=== PATIENT | male | born 1945 | race Caucasian/White ===

== ENCOUNTER 2018-12-16 14:58 | Observation (INO) | payer MEDICARE, BC ==
[~2018-12-16] VITALS: Ht 180.3 cm; Wt 68.4 kg
[2018-12-16 15:59] LABS: BASO # 0.1 (0.0-0.2); BASO % 0.8 % (0.0-2.0); EOS # 0.2 (0.0-0.7); EOS % 2.4 % (0-4.0); GRAN # 5.1 (1.4-6.5); GRAN % 64.3 % (42.2-75.2); HEMOGLOBIN 12.2 g/dl (13.5-18.0); LYMPH # 1.6 (1.2-3.4); LYMPH % 20.3 % (20.0-51.0); MEAN CELL VOLUME 94 fl (80.0-100.0); MEAN CORPUSCULAR HEMOGLOBIN 32 pg (27.0-31.0); MEAN CORPUSCULAR HGB CONC 34 g/dl (33.0-37.0); MEAN PLATELET VOLUME 10.4 fl (7.4-10.4); MONO # 0.9 (0.1-0.6); MONO % 11.9 % (1.7-9.3); PLATELET COUNT 304 K/mm3 (130-400); RED BLOOD COUNT 3.83 M/mm3 (4.20-5.60); REDCELL DISTRIBUTION WIDTH-CV 13.7 % (11.5-14.5)
[2018-12-16 16:12] LABS: ALBUMIN 4.2 gm/dL (3.5-5.0); BILIRUBIN,TOTAL 0.6 mg/dL (0.0-1.0); CALCIUM 9.8 mg/dL (8.4-10.2); CREATININE, serum 1.51 (0.66-1.25); POTASSIUM 4.4 mmol/L (3.4-5.0); TOTAL PROTEIN 7.2 gm/dL (6.4-8.2)
[2018-12-16] MEDS ORDERED: CLARITIN 1010 MG/TAB PO (17:52)
[2018-12-16] MEDS ORDERED: ALEVE 220MG220 MG PO (17:53)
[2018-12-16 18:10] LABS: TROPONIN-I < 0.012 ng/mL (0.000-0.035)
[2018-12-16 18:13] LABS: PROLACTIN 6.8 ng/mL (3.7-17.9)
[2018-12-16 18:56] LABS: COLLECTION METHOD CLEAN CATCH
[2018-12-16 19:04] LABS: HYALINE CAST >12 /lpf; MUCOUS Present /lpf; PH 5 (5-8); SQUAMOUS EPITHELIAL 0-2 /hpf; URINE APPEARANCE Hazy; URINE BACTERIA None Seen /hpf; URINE BILIRUBIN Negative (NEGATIVE); URINE BLOOD Negative (NEGATIVE); URINE COLOR Yellow; URINE GLUCOSE Negative (NEGATIVE); URINE KETONE Negative (NEGATIVE); URINE LEUKOCYTE ESTERASE 2+ (NEGATIVE); URINE NITRATE Negative (NEGATIVE); URINE PROTEIN(semi-quant) Negative (NEGATIVE)
[2018-12-16 20:30] VITALS: PULSE 77
[2018-12-16 20:40] VITALS: BP 138/68; PULSE 70; TEMP 98.3
--- NOTE | 2018-12-16 21:00 | NUR ---
Admitted to medical floor observation status- DX syncope, VSS, alert,oriented, denies SOB, dizziness, vertigo- Up to bathroom with assist-voiding without problems- understands to call for assist to bathroom, INT to R/AC. Tele on. States has some left sided pain 06/19- states "its not too bad now"
[2018-12-16] MEDS ORDERED: BENADRYL25 M2 PO (21:38)
[2018-12-16 22:07] VITALS: PULSE 72
[2018-12-17 00:14] VITALS: BP 121/52; PULSE 69; TEMP 98
[2018-12-17 03:15] VITALS: BP 146/67; PULSE 65
--- NOTE | 2018-12-17 05:27 | NUR ---
Quiet night- VSS, did sleep for a few hours between interruptions-Tele on.
[2018-12-17 07:04] LABS: HEMATOCRIT 38.1 % (42.0-52.0); HEMOGLOBIN 12.7 g/dl (13.5-18.0); MEAN CELL VOLUME 95 fl (80.0-100.0); MEAN CORPUSCULAR HEMOGLOBIN 32 pg (27.0-31.0); MEAN CORPUSCULAR HGB CONC 33 g/dl (33.0-37.0); MEAN PLATELET VOLUME 10.7 fl (7.4-10.4); PLATELET COUNT 320 K/mm3 (130-400); REDCELL DISTRIBUTION WIDTH-CV 13.9 % (11.5-14.5)
[2018-12-17 07:15] VITALS: BP 141/59; PULSE 69; TEMP 97.7
[2018-12-17 07:23] LABS: ANION GAP 6 mmol/L (7-16); BLOOD UREA NITROGEN 13 mg/dL (9-20); CALCIUM 9.2 mg/dL (8.4-10.2); CARBON DIOXIDE 23 mmol/L (22-30); CHLORIDE 107 mmol/L (98-107); CHOLESTEROL 195 mg/dL (120-200); CHOLESTEROL RISK RATIO 3.6; CREATININE, serum 1.18 (0.66-1.25); GLUCOSE 78 mg/dL (74-106); HDL CHOLESTEROL 53 mg/dL; LDL CHOLESTEROL 127 mg/dL; POTASSIUM 4.2 mmol/L (3.4-5.0); SODIUM 137 mmol/L (137-145); TRIGLYCERIDE 77 mg/dL
[2018-12-17 07:47] LABS: TROPONIN-I < 0.012 ng/mL (0.000-0.035)
--- NOTE | 2018-12-17 09:14 | NUR ---
Initial visit; Patient thanked Book Editor for looking in on him and offering God's blessings.
--- NOTE | 2018-12-17 10:17 | NUR ---
MOLLY's met with the patient and the patient's , Jessica (ph#[phone]), to discuss discharge plan. The patient lives in [place] with his . He states that his grandson lives with them part of the time. He reports independence with ADLs and has a cane, walker, and wheelchair available if needed. The patient does not have a primary care provider and he was not interested in being set up with one at this time. MOLLY did provide the patient with a list of the different PCP's in the [place] area to look over. He receives his medications at the [facility] in [place] and he reports no difficulties obtaining his meds. The patient does not have advanced directives completed and he was not interested in completing them at this time. The patient plans to return back home with his upon discharge. SW to continue to follow.
[2018-12-17 11:05] VITALS: BP 132/62; PULSE 72; TEMP 98
--- NOTE | 2018-12-17 12:15 | NUR ---
PT TAKEN DOWN VIA WHEELCHAIR FOR MRI
--- NOTE | 2018-12-17 13:04 | NUR ---
PT RETURNED FROM MRI. SPA HOST PRESENT TO PERFORM ECHOCARDIOGRAM.
[2018-12-17] MEDS ORDERED: OMNICEF 300MG300 MG PO (15:38)
[2018-12-17] MEDS ORDERED: ASPIRIN 81M81 MG/TA2 PO (15:39)
[2018-12-17] MEDS ORDERED: TYLENOL 500MG500 MG PO (15:51)
--- NOTE | 2018-12-17 16:07 | NUR ---
DISCHARGE INSTRUCTIONS REVIEWED WITH PATIENT AND . PT'S IV DISCONTINUED. PT'S BELONGINS DISCHARGED WITH PATIENT. PT WHEELED TO ENTRANCE BY KATIA MEDINA.
[2018-12-19 11:48] LABS: RPR (VDRL) XXX
== END 2018-12-17 16:05 | disposition home or self-care (01) ==
LOC: COL.ER 14:58 → MEDICAL 18:30
PROVIDERS: Emergency Medicine; ADMIT Student in an Organized Health Care Education/Training Program
DX: R55 Syncope and collapse (principal); N17.9 Acute kidney failure, unspecified; N39.0 Urinary tract infection, site not specified; E78.5 Hyperlipidemia, unspecified; J30.89 Other allergic rhinitis; I07.1 Rheumatic tricuspid insufficiency; Z87.891 Personal history of nicotine dependence; Z91.010 Allergy to peanuts; Z91.018 Allergy to other foods
CPT/HCPCS: A4216; A9585; G0378; J0696; J1650; J7030

== ENCOUNTER 2018-12-26 15:50 | Emergency (ER) | payer MEDICARE, BC ==
[~2018-12-26] VITALS: Ht 180.3 cm; Wt 63.6 kg
[~2018-12-26 15:50] MED LIST: ALEVE 220MG220 MG PO; ASPIRIN 81M81 MG/TA2 PO; BENADRYL25 M2 PO; CLARITIN 1010 MG/TAB PO; OMNICEF 300MG300 MG PO; TYLENOL 500MG500 MG PO
[2018-12-26 15:55] VITALS: TEMP 98
[2018-12-26 16:39] LABS: BASO # 0.1 (0.0-0.2); BASO % 0.5 % (0.0-2.0); EOS % 0.1 % (0-4.0); GRAN % 83.3 % (42.2-75.2); HEMATOCRIT 37.5 % (42.0-52.0); HEMOGLOBIN 12.6 g/dl (13.5-18.0); LYMPH # 0.9 (1.2-3.4); LYMPH % 8.7 % (20.0-51.0); MEAN CELL VOLUME 94 fl (80.0-100.0); MEAN CORPUSCULAR HEMOGLOBIN 32 pg (27.0-31.0); MEAN CORPUSCULAR HGB CONC 34 g/dl (33.0-37.0); MEAN PLATELET VOLUME 9.9 fl (7.4-10.4); MONO # 0.7 (0.1-0.6); MONO % 6.8 % (1.7-9.3); PLATELET COUNT 306 K/mm3 (130-400); RED BLOOD COUNT 3.98 M/mm3 (4.20-5.60); REDCELL DISTRIBUTION WIDTH-CV 14.1 % (11.5-14.5)
[2018-12-26 17:20] LABS: ALANINE AMINOTRANSFERASE 23 U/L (21-72); ALBUMIN 4.4 gm/dL (3.5-5.0); ALKALINE PHOSPHATASE 73 U/L (50-136); ANION GAP 14 mmol/L (7-16); AST,SGOT 56 U/L (15-37); BILIRUBIN,TOTAL 0.6 mg/dL (0.0-1.0); BLOOD UREA NITROGEN 17 mg/dL (9-20); C-REACTIVE PROTEIN 0.9 mg/dL (0.0-0.9); CALCIUM 9.3 mg/dL (8.4-10.2); CARBON DIOXIDE 20 mmol/L (22-30); CHLORIDE 96 mmol/L (98-107); CREATININE, serum 1.17 (0.66-1.25); GLUCOSE 76 mg/dL (74-106); LIPASE 243 U/L (23-300); MAGNESIUM 1.9 mg/dL (1.6-2.3); PHOSPHOROUS 3.4 mg/dL (2.5-4.5); POTASSIUM 4.7 mmol/L (3.4-5.0); SODIUM 131 mmol/L (137-145); TOTAL PROTEIN 7.7 gm/dL (6.4-8.2)
[2018-12-26 17:35] LABS: ALCOHOL(ethanol),MEDICAL < 10 mg/dL
[2018-12-26 18:10] LABS: COLLECTION METHOD CLEAN CATCH
[2018-12-26 18:29] LABS: PH 5 (5-8); SQUAMOUS EPITHELIAL None Seen /hpf; URINE APPEARANCE Clear; URINE BACTERIA None Seen /hpf; URINE BILIRUBIN Negative (NEGATIVE); URINE BLOOD Negative (NEGATIVE); URINE COLOR Yellow; URINE GLUCOSE Negative (NEGATIVE); URINE KETONE 1+ (NEGATIVE); URINE LEUKOCYTE ESTERASE Negative (NEGATIVE); URINE NITRATE Negative (NEGATIVE); URINE PROTEIN(semi-quant) Negative (NEGATIVE); URINE RBC 0-2 /hpf; URINE UROBILINOGEN Negative (NEGATIVE)
[2018-12-26] MEDS ORDERED: TRIAMCINOLONE A15 G1 TP (18:45)
[2018-12-26 18:59] VITALS: BP 135/100; PULSE 93
== END 2018-12-26 18:59 | disposition home or self-care (01) ==
LOC: COL.ER 15:50
PROVIDERS: Emergency Medicine
DX: F10.10 Alcohol abuse, uncomplicated (principal); R21 Rash and other nonspecific skin eruption; R53.81 Other malaise; F17.210 Nicotine dependence, cigarettes, uncomplicated; Z79.82 Long term (current) use of aspirin
CPT/HCPCS: J7030

== ENCOUNTER → 2019-06-30 | Outpatient (CLI) | payer MEDICARE, BC ==
[~2019-06-30] MED LIST changes: +TRIAMCINOLONE A15 G1 TP
== END ==
LOC: COL.VAS 10:21
DX: I65.23 Occlusion and stenosis of bilateral carotid arteries (principal)

== ENCOUNTER 2023-05-01 18:35 | Inpatient (IN) | payer MEDICARE, BC ==
[2023-05-01] VITALS (77 sets, daily range): BP systolic 73–87; BP diastolic 53–57; PULSE 117; TEMP 99.5; O2SAT 88–98
[~2023-05-01] VITALS: Ht 180.3 cm; Wt 87.5 kg
[2023-05-01] MEDS ORDERED: Melatonin 3 MG TAB PO PRN (22:15)
[2023-05-01] MEDS ORDERED: Albuterol/Ipratropium 3 MG-0.5 MG/3 ML Neb Soln IH PRN (22:15)
[2023-05-01] MEDS ORDERED: Amiodarone 450 MG in D5W Excel 250 ML IV SCH (22:15)
[2023-05-01] MEDS ORDERED: Acetaminophen 325 MG TAB PO PRN (22:15)
[2023-05-01] MEDS ORDERED: Ondansetron 4 MG/2 ML VIAL IV PRN (22:15)
[2023-05-01] MEDS ORDERED: Albuterol/Ipratropium 3 MG-0.5 MG/3 ML Neb Soln IH SCH (23:00)
[2023-05-01 23:05] LABS: HEMOGLOBIN 11.3 g/dl (13.5-18.0); MEAN CELL VOLUME 91 fl (80.0-100.0); MEAN CORPUSCULAR HEMOGLOBIN 30 pg (27-31); MEAN CORPUSCULAR HGB CONC 33 g/dl (33.0-37.0); MEAN PLATELET VOLUME 10.1 fl (7.4-10.4); PLATELET COUNT 316 K/mm3 (130-400); RED BLOOD COUNT 3.75 M/mm3 (4.20-5.60); REDCELL DISTRIBUTION WIDTH-CV 14.5 % (11.5-14.5)
[2023-05-01 23:07] LABS: HEMATOCRIT 34.1 % (42.0-52.0)
[2023-05-01 23:21] LABS: BAND 6 % (0-10); HYPOCHROMIA 1+; LYMPHOCYTE 1 % (20.0-51.0); NEUTROPHILS 91 % (42.0-75.2); PLATELET ESTIMATE NORMAL (NORMAL)
[2023-05-01 23:22] LABS: ANISOCYTOSIS 1+; BURR CELLS 1+; OVALOCYTES 1+
[2023-05-01 23:33] LABS: ALBUMIN 2.4 gm/dL (3.4-4.8); BILIRUBIN,TOTAL 1.5 mg/dL (0.2-1.2); CALCIUM 8.9 mg/dL (8.4-10.2); CREATININE, serum 2.33 mg/dL (0.72-1.25); POTASSIUM 4.2 mmol/L (3.5-4.5); TOTAL PROTEIN 6.8 gm/dL (6.2-8.1)
[2023-05-02] VITALS (1304 sets, daily range): BP systolic 86–140; BP diastolic 49–111; PULSE 69–107; TEMP 96.5–99.5; O2SAT 57–100
[2023-05-02] MEDS ORDERED: Cefepime 1 G in Water For Injection,Sterile 10 ML IV SCH
[2023-05-02] MEDS ORDERED: NS 1,000 ML IV SCH (00:15)
[2023-05-02 01:38] LABS: COLLECTION METHOD CATHETER
[2023-05-02 01:55] LABS: URINE APPEARANCE TURBID (CLEAR/HAZY); URINE BLOOD 3+ (NEGATIVE); URINE COLOR ORANGE (YELLOW); URINE GLUCOSE NEGATIVE (NEGATIVE); URINE KETONE TRACE (NEGATIVE); URINE NITRATE POSITIVE (NEGATIVE); URINE PROTEIN(semi-quant) 2+ (NEGATIVE)
[2023-05-02 02:13] LABS: AMORPHOUS CRYSTAL PRESENT (NOT PRESENT); URINE BACTERIA MANY /hpf (NONE SEEN)
[2023-05-02] MEDS ORDERED: FLOMAX 0.40.4 MG/CAP PO (02:42)
[2023-05-02] MEDS ORDERED: BACTRIM DS 8001 TAB PO (02:43)
[2023-05-02] MEDS ORDERED: LIPITOR 40MG TA40 MG PO (02:43)
[2023-05-02] MEDS ORDERED: NS 1,000 ML IV ONE (03:45)
[2023-05-02] MEDS ORDERED: Amiodarone 450 MG in D5W Excel 250 ML IV SCH (04:13)
[2023-05-02 05:23] LABS: HEMOGLOBIN 10.6 g/dl (13.5-18.0); MEAN CELL VOLUME 92 fl (80.0-100.0); MEAN CORPUSCULAR HEMOGLOBIN 30 pg (27-31); MEAN CORPUSCULAR HGB CONC 32 g/dl (33.0-37.0); MEAN PLATELET VOLUME 10.2 fl (7.4-10.4); PLATELET COUNT 295 K/mm3 (130-400); RED BLOOD COUNT 3.55 M/mm3 (4.20-5.60); REDCELL DISTRIBUTION WIDTH-CV 14.7 % (11.5-14.5)
[2023-05-02 05:32] LABS: HEMATOCRIT 32.7 % (42.0-52.0)
[2023-05-02 05:35] LABS: CALCIUM 8.5 mg/dL (8.4-10.2); CREATININE, serum 2.58 mg/dL (0.72-1.25); PHOSPHOROUS 3.8 mg/dL (2.3-4.7); POTASSIUM 4.3 mmol/L (3.5-4.5)
[2023-05-02 05:45] LABS: BAND 9 % (0-10); HYPOCHROMIA 1+; LYMPHOCYTE 6 % (20.0-51.0); NEUTROPHILS 82 % (42.0-75.2); PLATELET ESTIMATE NORMAL (NORMAL)
[2023-05-02 05:46] LABS: ANISOCYTOSIS 1+; BURR CELLS 1+
[2023-05-02] MEDS ORDERED: fentaNYL 50 MCG/ML 2 ML VIAL ONE ×2 (07:57→09:36)
[2023-05-02] MEDS ORDERED: Ondansetron 4 MG/2 ML VIAL ONE (07:57)
[2023-05-02] MEDS ORDERED: dexAMETHasone 10 MG/ML VIAL ONE (07:57)
[2023-05-02] MEDS ORDERED: Lidocaine PF 2% (20 MG/ML) 5 ML VIAL ONE (07:57)
[2023-05-02] MEDS ORDERED: Metoprolol Tartrate 25 MG TAB PO SCH (09:00)
[2023-05-02] MEDS ORDERED: Tranexamic Acid 1,000 MG/10 ML VIAL ONE (09:33)
[2023-05-02] MEDS ORDERED: Lidocaine 2% (20 MG/ML) 20 ML UROJET UR ONE (09:35)
[2023-05-02] MEDS ORDERED: NS Irrig Soln 3000 ML SOLN IR PRN (10:00)
[2023-05-02] MEDS ORDERED: Albuterol/Ipratropium 3 MG-0.5 MG/3 ML Neb Soln IH SCH (20:00)
[2023-05-02] MEDS ORDERED: Atorvastatin 40 MG TAB PO SCH (21:00)
[2023-05-03] VITALS (930 sets, daily range): BP systolic 90–153; BP diastolic 65–83; PULSE 69–110; TEMP 97–98.4; O2SAT 71–100
[2023-05-03 05:44] LABS: HEMOGLOBIN 10.6 g/dl (13.5-18.0); MEAN CELL VOLUME 91 fl (80.0-100.0); MEAN CORPUSCULAR HEMOGLOBIN 30 pg (27-31); MEAN CORPUSCULAR HGB CONC 33 g/dl (33.0-37.0); MEAN PLATELET VOLUME 10.4 fl (7.4-10.4); PLATELET COUNT 238 K/mm3 (130-400); RED BLOOD COUNT 3.56 M/mm3 (4.20-5.60)
[2023-05-03 05:58] LABS: CALCIUM 8.6 mg/dL (8.4-10.2); CREATININE, serum 2.09 mg/dL (0.72-1.25); POTASSIUM 4.6 mmol/L (3.5-4.5)
[2023-05-03 06:06] LABS: HEMATOCRIT 32.3 % (42.0-52.0)
[2023-05-03 06:24] LABS: ANISOCYTOSIS 1+; BAND 3 % (0-10); HYPOCHROMIA 1+; LYMPHOCYTE 6 % (20.0-51.0); METAMYELOCYTE 1 % (0-0); NEUTROPHILS 85 % (42.0-75.2); PLATELET ESTIMATE NORMAL (NORMAL)
[2023-05-03 06:25] LABS: BURR CELLS 1+
[2023-05-03] MEDS ORDERED: Morphine 4 MG/ML VIAL IV PRN (12:45)
[2023-05-03] MEDS ORDERED: Heparin 5,000 UNITS/ML 1 ML VIAL IV PRN (13:00)
[2023-05-03] MEDS ORDERED: Heparin/D5W 250 ML IV SCH (13:00)
[2023-05-03 14:22] LABS: PARTIAL THROMBOPLASTIN TIME 27.5 SECONDS (26.0-37.0)
[2023-05-03 17:48] LABS: CREATININE, serum 1.94 mg/dL (0.72-1.25); SODIUM 132 mmol/L (136-145)
[2023-05-04] VITALS (14 sets, daily range): BP systolic 114–159; BP diastolic 53–81; PULSE 79–115; TEMP 96.4–98.2
[2023-05-04 06:18] LABS: HEMOGLOBIN 10.5 g/dl (13.5-18.0); MEAN CELL VOLUME 90 fl (80.0-100.0); MEAN CORPUSCULAR HEMOGLOBIN 30 pg (27-31); MEAN CORPUSCULAR HGB CONC 33 g/dl (33.0-37.0); MEAN PLATELET VOLUME 12.1 fl (7.4-10.4); PLATELET COUNT 206 K/mm3 (130-400); RED BLOOD COUNT 3.53 M/mm3 (4.20-5.60); REDCELL DISTRIBUTION WIDTH-CV 15.2 % (11.5-14.5)
[2023-05-04 06:26] LABS: HEMATOCRIT 31.8 % (42.0-52.0)
[2023-05-04 06:36] LABS: CALCIUM 8.5 mg/dL (8.4-10.2); CREATININE, serum 1.73 mg/dL (0.72-1.25)
[2023-05-04 06:57] LABS: ANISOCYTOSIS 1+; BAND 6 % (0-10); BURR CELLS 2+; HYPOCHROMIA 1+; LYMPHOCYTE 2 % (20.0-51.0); NEUTROPHILS 88 % (42.0-75.2); PLATELET ESTIMATE NORMAL (NORMAL)
[2023-05-04] MEDS ORDERED: Famotidine 20 MG TAB PO SCH (15:54)
[2023-05-04] MEDS ORDERED: metroNIDAZOLE 100 ML IV SCH (18:00)
[2023-05-05] VITALS (14 sets, daily range): BP systolic 118–153; BP diastolic 70–78; PULSE 85–131; TEMP 97.6–98.3
[2023-05-05 06:39] LABS: MEAN CELL VOLUME 89 fl (80.0-100.0); MEAN CORPUSCULAR HEMOGLOBIN 30 pg (27-31); MEAN CORPUSCULAR HGB CONC 33 g/dl (33.0-37.0); MEAN PLATELET VOLUME 11.3 fl (7.4-10.4); PLATELET COUNT 234 K/mm3 (130-400); RED BLOOD COUNT 3.35 M/mm3 (4.20-5.60); REDCELL DISTRIBUTION WIDTH-CV 15.4 % (11.5-14.5)
[2023-05-05] MEDS ORDERED: Morphine 4 MG/ML VIAL IV PRN (06:45)
[2023-05-05 06:57] LABS: CALCIUM 8.6 mg/dL (8.4-10.2); CREATININE, serum 1.73 mg/dL (0.72-1.25); HEMATOCRIT 29.9 % (42.0-52.0); MAGNESIUM 2.3 mg/dL (1.6-2.6); POTASSIUM 4.3 mmol/L (3.5-4.5)
[2023-05-05 07:51] LABS: BAND 7 % (0-10); LYMPHOCYTE 8 % (20.0-51.0); METAMYELOCYTE 1 % (0-0); NEUTROPHILS 78 % (42.0-75.2)
[2023-05-05 07:52] LABS: PLATELET ESTIMATE NORMAL (NORMAL)
[2023-05-05] MEDS ORDERED: NS 1,000 ML IV SCH (08:15)
[2023-05-05] MEDS ORDERED: Hyoscyamine 0.125 MG Sublingual TAB PO PRN (11:15)
[2023-05-05] MEDS ORDERED: D5 1/2 NS 1,000 ML IV SCH (11:15)
[2023-05-05] MEDS ORDERED: diphenhydrAMINE Oral Soln 12.5 MG/5 ML UD PO ONE (14:45)
[2023-05-05 16:13] LABS: HEMATOCRIT 28.1 % (42.0-52.0); HEMOGLOBIN 9.4 g/dl (13.5-18.0)
[2023-05-06] VITALS (13 sets, daily range): BP systolic 134–185; BP diastolic 79–103; PULSE 86–110; TEMP 97.4–98.1
[2023-05-06 08:21] LABS: CALCIUM 8.4 mg/dL (8.4-10.2); CREATININE, serum 1.3 mg/dL (0.72-1.25); POTASSIUM 3.8 mmol/L (3.5-4.5)
[2023-05-06 08:34] LABS: BAND 10 % (0-10); LYMPHOCYTE 6 % (20.0-51.0); NEUTROPHILS 78 % (42.0-75.2); PLATELET ESTIMATE NORMAL (NORMAL)
[2023-05-06 08:35] LABS: HYPOCHROMIA 1+; OVALOCYTES 1+
[2023-05-06 09:50] LABS: BASO % 0.2 % (0.0-2.0); EOS # 0.1 K/mm3 (0.0-0.7); EOS % 0.4 % (0.0-4.0); GRAN # 11.4 K/mm3 (1.4-6.5); GRAN % 77.6 % (42.2-75.2); LYMPH # 1.2 K/mm3 (1.2-3.4); LYMPH % 8.2 % (20.0-51.0); MEAN CELL VOLUME 89 fl (80.0-100.0); MEAN CORPUSCULAR HGB CONC 34 g/dl (33.0-37.0); MEAN PLATELET VOLUME 11.2 fl (7.4-10.4); MONO # 1.4 K/mm3 (0.1-0.6); MONO % 9.2 % (1.7-9.3); PLATELET COUNT 230 K/mm3 (130-400); RED BLOOD COUNT 3.26 M/mm3 (4.20-5.60); REDCELL DISTRIBUTION WIDTH-CV 15.4 % (11.5-14.5)
[2023-05-06 09:51] LABS: HEMATOCRIT 29.1 % (42.0-52.0); HEMOGLOBIN 9.9 g/dl (13.5-18.0); MEAN CORPUSCULAR HEMOGLOBIN 30 pg (27-31)
[2023-05-06 13:01] LABS: CALCIUM 8.3 mg/dL (8.4-10.2); CREATININE, serum 1.3 mg/dL (0.72-1.25)
[2023-05-07] VITALS (13 sets, daily range): BP systolic 144–174; BP diastolic 71–95; PULSE 73–99; TEMP 97.6–98.1
[2023-05-07 06:52] LABS: MEAN CELL VOLUME 89 fl (80.0-100.0); MEAN CORPUSCULAR HGB CONC 34 g/dl (33.0-37.0); MEAN PLATELET VOLUME 11.1 fl (7.4-10.4); PLATELET COUNT 274 K/mm3 (130-400); RED BLOOD COUNT 3.14 M/mm3 (4.20-5.60); REDCELL DISTRIBUTION WIDTH-CV 15.5 % (11.5-14.5)
[2023-05-07 06:56] LABS: HEMATOCRIT 27.8 % (42.0-52.0); HEMOGLOBIN 9.4 g/dl (13.5-18.0); MEAN CORPUSCULAR HEMOGLOBIN 30 pg (27-31)
[2023-05-07] MEDS ORDERED: Metoprolol Tartrate 25 MG TAB PO SCH (21:00)
[2023-05-08] VITALS (11 sets, daily range): BP systolic 159–165; BP diastolic 76–81; PULSE 70–77; TEMP 97.5–98
[2023-05-08 05:16] LABS: MEAN CELL VOLUME 88 fl (80.0-100.0); MEAN CORPUSCULAR HGB CONC 34 g/dl (33.0-37.0); MEAN PLATELET VOLUME 11.1 fl (7.4-10.4); PLATELET COUNT 321 K/mm3 (130-400); RED BLOOD COUNT 3.18 M/mm3 (4.20-5.60); REDCELL DISTRIBUTION WIDTH-CV 15.5 % (11.5-14.5)
[2023-05-08 05:25] LABS: HEMATOCRIT 28.1 % (42.0-52.0); HEMOGLOBIN 9.5 g/dl (13.5-18.0); MEAN CORPUSCULAR HEMOGLOBIN 30 pg (27-31)
[2023-05-08 05:42] LABS: CALCIUM 8.2 mg/dL (8.4-10.2); CREATININE, serum 0.98 mg/dL (0.72-1.25); MAGNESIUM 1.8 mg/dL (1.6-2.6); POTASSIUM 3.4 mmol/L (3.5-4.5)
[2023-05-08 05:56] LABS: ANISOCYTOSIS 1+; BAND 4 % (0-10); EOSINOPHIL 1 % (0-4); LYMPHOCYTE 15 % (20.0-51.0); METAMYELOCYTE 1 % (0-0); NEUTROPHILS 72 % (42.0-75.2); PLATELET ESTIMATE NORMAL (NORMAL)
[2023-05-08 05:57] LABS: HYPOCHROMIA 1+; TARGET CELLS 1+
[2023-05-08 05:58] LABS: TEAR DROP CELLS 1+
[2023-05-08] MEDS ORDERED: *Potassium Replacement Protocol MC SCH ×2 (07:45→08:00)
[2023-05-08] MEDS ORDERED: Potassium Chloride 100 ML IV SCH (08:00)
[2023-05-08] MEDS ORDERED: Apixaban 5 MG TAB PO SCH (09:50)
[2023-05-08] MEDS ORDERED: Polyethylene Glycol 3350 17 GM PDS PO SCH (09:54)
[2023-05-08] MEDS ORDERED: ELIQUIS 5MG PO (14:36)
[2023-05-08] MEDS ORDERED: Cefepime 2 G in Water For Injection,Sterile 20 ML IV SCH (19:30)
[2023-05-09 00:12] VITALS: BP 161/81; PULSE 69; TEMP 97.8
[2023-05-09 01:18] VITALS: BP_SYST 161
[2023-05-09 04:06] VITALS: BP 174/78; PULSE 72; TEMP 97.5
[2023-05-09 06:28] VITALS: BP_SYST 174
[2023-05-09 08:00] VITALS: BP 170/66; PULSE 85; TEMP 97.7
[2023-05-09 09:02] VITALS: BP_SYST 170
[2023-05-09 09:39] LABS: MEAN CELL VOLUME 92 fl (80.0-100.0); MEAN CORPUSCULAR HGB CONC 32 g/dl (33.0-37.0); PLATELET COUNT 344 K/mm3 (130-400); RED BLOOD COUNT 3.26 M/mm3 (4.20-5.60); REDCELL DISTRIBUTION WIDTH-CV 15.9 % (11.5-14.5)
[2023-05-09 09:44] LABS: HEMOGLOBIN 9.7 g/dl (13.5-18.0); MEAN CORPUSCULAR HEMOGLOBIN 30 pg (27-31)
[2023-05-09] MEDS ORDERED: FLOMAX 0.40.4 MG/CAP PO (10:26)
[2023-05-09] MEDS ORDERED: LIPITOR 40MG TA40 MG PO (10:26)
[2023-05-09] MEDS ORDERED: PEPCID 20MG TAB20 MG PO (10:26)
[2023-05-09] MEDS ORDERED: LEADER CLE17 GM/Dose PO (10:26)
[2023-05-09] MEDS ORDERED: CIPRO 500MG TA500 MG PO (10:26)
[2023-05-09] MEDS ORDERED: LOPRESSOR 550 MG/TAB PO (10:26)
[2023-05-09] MEDS ORDERED: LEVSIN0.125 M1 PO (10:26)
[2023-05-09] MEDS ORDERED: NORCO 325 MG-51 TAB PO (10:26)
[2023-05-09] MEDS ORDERED: FLAGYL500 MG PO (10:26)
== END 2023-05-09 15:10 | disposition home health service (06) | DRG 871 ==
LOC: IMCU 18:35 → ICU 22:12 → SURG 05-03 17:45
PROVIDERS: Internal Medicine; Nurse Practitioner Family; ADMIT Hospitalist
DX: A41.9 Sepsis, unspecified organism (principal); J96.01 Acute respiratory failure with hypoxia; R65.21 Severe sepsis with septic shock; N41.2 Abscess of prostate; I50.42 Chronic combined systolic (congestive) and diastolic (congestive) heart failure; E87.1 Hypo-osmolality and hyponatremia; N17.9 Acute kidney failure, unspecified; R31.9 Hematuria, unspecified; R33.9 Retention of urine, unspecified; I48.91 Unspecified atrial fibrillation; I10 Essential (primary) hypertension; J44.9 Chronic obstructive pulmonary disease, unspecified; E78.5 Hyperlipidemia, unspecified; N40.0 Benign prostatic hyperplasia without lower urinary tract symptoms; R12 Heartburn
CPT/HCPCS: A4314; C1751; C1769; J0282; J0692; J1100; J1644; J1836; J2270; J2405; J2704; J3010; J3480; J7030; J7060; Q3014